=== PATIENT | female | born 1960 | race Caucasian/White ===

== ENCOUNTER 2022-12-23 09:47 | Day surgery (SDC) | payer OTHER ==
[~2022-12-23] VITALS: Ht 154.9 cm; Wt 70.8 kg
[2022-12-23] MEDS ORDERED: fentaNYL citrate 0.05 MG/ML VIAL ONE (11:41)
[2022-12-23] MEDS ORDERED: LIDOCAINE 2% 100 MG/5 ML UJET TP ONE (11:42)
[2022-12-23] MEDS ORDERED: fentaNYL citrate 0.05 MG/ML VIAL IVP SCH (13:05)
[2022-12-23] MEDS ORDERED: LIDOCAINE 2% 100 MG/5 ML UJET TP SCH (13:05)
== END 2022-12-23 13:00 | disposition home or self-care (01) ==
LOC: MDS 09:47 → MMU 09:50 → MDS 13:00
PROVIDERS: ATTEND Internal Medicine Gastroenterology
DX: Z12.11 Encounter for screening for malignant neoplasm of colon (principal); K57.30 Diverticulosis of large intestine without perforation or abscess without bleeding; E11.9 Type 2 diabetes mellitus without complications; E78.00 Pure hypercholesterolemia, unspecified; Z86.73 Personal history of transient ischemic attack (TIA), and cerebral infarction without residual deficits; Z79.82 Long term (current) use of aspirin; Z79.899 Other long term (current) drug therapy
CPT/HCPCS: 45378; 82948; J3010